=== PATIENT | male | born 1950 | race Caucasian/White ===

== ENCOUNTER 2025-04-07 09:41 | Inpatient (IN) | payer SELFPAY ==
[~2025-04-07] VITALS: Ht 180.3 cm; Wt 63.5 kg
[2025-04-07 09:43] VITALS: O2SAT 99
[2025-04-07 11:36] LABS: BASOPHILS % 0.7 % (0.0-2.0); EOSINOPHILS % 3.2 % (0.0-5.0); HEMATOCRIT. 37.0 % (42.0-52.0); HEMOGLOBIN. 12.3 g/dL (14.0-18.0); LYMPHOCYTES % 35.5 % (20.0-50.0); MEAN PLATELET VOLUME 7.1 fl (7.4-10.4); MONOCYTES % 7.1 % (2.0-8.0); NEUTROPHILS % 53.5 % (40.0-76.0); PLATELET 297 x1000/uL (130-400); RED BLOOD CELL COUNT 4.16 mill/uL (4.7-6.1); RED CELL DISTRIBUTION WIDTH 14.1 % (11.6-14.6)
[2025-04-07 12:00] VITALS: BP 135/76; PULSE 96; RESP 18; TEMP 37; O2SAT 98
[2025-04-07 12:04] LABS: CREATININE 0.8 mg/dL (0.6-1.3); UREA NITROGEN BLOOD 8 mg/dL (9-23)
[2025-04-07 12:06] LABS: ASPARTATE AMINOTRANSFERASE 20 IU/L (<34); BILIRUBIN TOTAL 0.2 mg/dL (0.1-1.0); PROTEIN TOTAL 6.8 g/dL (6.0-8.3)
[2025-04-07 12:08] VITALS: O2SAT 99
[2025-04-07] MEDS ORDERED: ACETAMINOPHEN 325MG TABLET PO PRN ×2 (12:15)
[2025-04-07] MEDS ORDERED: IPRATROPIUM/ALBUTEROL 0.5-3(2.5)MG/3ML NEB HHN PRN (12:15)
[2025-04-07] MEDS ORDERED: DOCUSATE SODIUM 100MG CAPSULE PO PRN (12:15)
[2025-04-07] MEDS ORDERED: ONDANSETRON HCL 4MG/2ML INJ IV PRN (12:15)
[2025-04-07] MEDS ORDERED: GUAIFENESIN 200MG/10ML SUGAR FREE UDC PO PRN (12:15)
[2025-04-07] MEDS ORDERED: DEXTROSE 50% WATER 50ML SYRINGE IV PRN ×2 (12:30)
[2025-04-07] MEDS ORDERED: LORAZEPAM 2MG/ML UD SYRINGE IV PRN ×2 (12:30)
[2025-04-07] MEDS ORDERED: ENOXAPARIN 40MG/0.4ML SYR SUBCUT SCH (13:00)
[2025-04-07] MEDS ORDERED: PANTOPRAZOLE SODIUM 40 MG/VIAL IV SCH (13:00)
[2025-04-07] MEDS ORDERED: MVI, ADULT NO.1 10 ML, FOLIC ACID 1 MG, THIAMINE HCL 100 MG in SODIUM CHLORIDE 0.9% 1,0... IV ONE (14:00)
[2025-04-07 14:11] VITALS: BP 130/82; PULSE 95; RESP 18; TEMP 37.0296
[2025-04-07 14:57] LABS: PHOSPHORUS 4.0 mg/dL (2.5-4.9)
[2025-04-07] MEDS ORDERED: FERROUS SULFATE 325MG TABLET PO SCH (18:10)
[2025-04-08] MEDS ORDERED: FOLIC ACID 1MG TABLET PO SCH (09:00)
[2025-04-08] MEDS ORDERED: THIAMINE HCL 100 MG/1 ML 2ML VIAL IM SCH (09:00)
[2025-04-08] MEDS ORDERED: INFLUENZA VACCINE 05/PF 0.5 ML SYRINGE IM ONE (09:00)
[2025-04-08] MEDS ORDERED: MULTIVITAMINS,THER W-MINERALS TABLET PO SCH (09:00)
[2025-04-11] MEDS ORDERED: THIAMINE HCL 100MG TABLET PO SCH (09:00)
== END 2025-04-07 15:53 | disposition left against medical advice (07) | DRG 52 ==
LOC: ER 09:50 → EDBD 09:50 → 7WST 11:42 → EDBEDREQTM 12:02 → EDBEDREQ 12:02 → 7WST 12:54
PROVIDERS: ADMIT Internal Medicine; ATTEND Internal Medicine
DX: G92.8 Other toxic encephalopathy (principal); G93.89 Other specified disorders of brain; Z59.00 Homelessness unspecified; D64.9 Anemia, unspecified; F10.129 Alcohol abuse with intoxication, unspecified; R73.03 Prediabetes; Z53.29 Procedure and treatment not carried out because of patient's decision for other reasons; Y90.7 Blood alcohol level of 200-239 mg/100 ml; Z79.899 Other long term (current) drug therapy
CPT/HCPCS: 36415; 80053; 80307; 80320; 80329; 82550; 83036; 83540; 83550; 83735; 84100; 85025; 93005; 99285; J3411; J3490; J7030; G0480